=== PATIENT | female | born 1975 | race African-American/Black ===

== ENCOUNTER 2023-06-07 14:11 | Emergency (ER) | payer OTHER ==
[~2023-06-07] VITALS: Ht 165.1 cm; Wt 101.8 kg
[2023-06-07] MEDS ORDERED: DexAMETHasone SOD PHOS 10MG/1ML VIAL INJ IM ONE (17:00)
[2023-06-07] MEDS ORDERED: MORPHINE SULFATE INJ 2 MG/ml SYRG IM ONE (17:00)
[2023-06-07] MEDS ORDERED: CYCL-611 PO (17:03)
[2023-06-07] MEDS ORDERED: HYDR-4902 PO (17:03)
[2023-06-07 17:05] VITALS: TEMP 97.6; O2SAT 98
[2023-06-07 17:13] VITALS: BP 134/75; PULSE 64; RESP 18
== END 2023-06-07 17:49 | disposition home or self-care (01) ==
LOC: ER 14:11
DX: M54.40 Lumbago with sciatica, unspecified side (principal); M54.2 Cervicalgia; G89.29 Other chronic pain
CPT/HCPCS: 96372; 99284; J1100; J2270

== ENCOUNTER 2024-05-06 09:05 | Emergency (ER) | payer SELFPAY, OTHER ==
[~2024-05-06] VITALS: Ht 165.1 cm; Wt 102.2 kg
[~2024-05-06 09:05] MED LIST: CYCL-611 PO; HYDR-4902 PO
[2024-05-06 09:37] VITALS: BP 127/89; PULSE 89; RESP 16; TEMP 97.8; O2SAT 99
[2024-05-06] MEDS ORDERED: SERT100T PO (09:47)
== END 2024-05-06 09:54 | disposition home or self-care (01) ==
LOC: ER 09:05
DX: F32.9 Major depressive disorder, single episode, unspecified (principal); Z76.0 Encounter for issue of repeat prescription; Z79.899 Other long term (current) drug therapy

== ENCOUNTER 2024-11-27 20:13 | Emergency (ER) | payer SELFPAY ==
[~2024-11-27] VITALS: Ht 165.1 cm; Wt 104.6 kg
[~2024-11-27 20:13] MED LIST changes: +SERT100T PO
[2024-11-27 20:54] VITALS: BP 104/67; PULSE 79; RESP 18; TEMP 98.5; O2SAT 99
[2024-11-27] MEDS ORDERED: AMOX875T4 PO (21:24)
[2024-11-27] MEDS ORDERED: PRED20TA2 PO (21:24)
[2024-11-27] MEDS ORDERED: ACET500T58 PO (21:24)
--- NOTE | 2024-11-27 21:26 | ED.PDOC ---
SOB-HPI HPI Comments 49-year-old female presents to ER with complaints of cough x2 days. Patient reports that she has been experiencing productive cough with green phlegm, congestion and sore throat x two days. Reports that she has been using [id number] Robitussin for her symptoms without relief. She rates her current sore throat pain a 7/10. Patient presents to ER ambulatory on arrival, with steady gait, in no distress. Denies fever, body aches, chills, shortness of breath, chest pain, hemoptysis, headache, known exposure to sick contacts or any further symptoms/complaints Chief Complaint: Flu like Time Seen by MD: 20:27 Primary Care Provider: Dr. Jean Barr Reviewed notes: Nurses Notes, Medications, Allergies Information Source: Patient Mode of Arrival: Ambulatory Past Medical History PAST MEDICAL HISTORY: Depression Past Medical History (Other): ADHD Surgical History: , Denies all surgeries PROCESSING SPECIALIST History: No Pertinent PROCESSING SPECIALIST History Family History Family History: Unknown Social History Smoker: Non-Smoker Alcohol: Denies ETOH Use Drugs: Denies Drug Use Lives In: Home Constitutional: denies: chills, diaphoresis, fatigue, fever, malaise, sweats, weakness, others EENTM: reports: others (As stated in HPI) Respiratory: reports: others (As stated in HPI) Cardiovascular: denies: chest pain, dizzy spells, diaphoresis, Dyspnea on exertion, edema, irregular heart beat, left arm pain, lightheadedness, palpitations, PND, syncope, others Gastrointestinal: denies: abdomen distended, abdominal pain, blood streaked bowels, constipated, diarrhea, dysphagia, difficulty swallowing, hematemesis, melena, nausea, poor appetite, poor fluid intake, rectal bleeding, rectal pain, vomiting, others Genitourinary: denies: abnormal vagina bleeding, burning, dyspareunia, dysuria, flank pain, frequency, hematuria, incontinence, pain, , vagina discharge, urgency, others Neurological: denies: dizziness, fainting, headache, left sided numbness, left sided weakness, numbness, paresthesia, pre-existing deficit, right sided numbness, right sided weakness, seizure, speech problems, tingling, tremors, weakness, others Musculoskeletal: denies: back pain, gout, joint pain, joint swelling, muscle pain, muscle stiffness, neck pain, others Integumetry: denies: bruises, change in color, change in hair/nails, dryness, laceration, lesions, lumps, rash, wounds, others Allergic/Immunocompromised: denies: Difficulty Healing, Frequent Infections, Hives, Itching, others Hematologic/Lymphatic: denies: anemia, blood clots, easy bleeding, easy bruising, swollen glands, others Endocrine: denies: excessive hunger, excessive sweating, excessive thirst, excessive urination, flushing, intolerance to cold, intolerance to heat, unex plained weight gain, unexplained weight loss, others Psychiatric: denies: anxiety, bipolar disorder, depression, hopeless, panic disorder, schizophrenia, sleepless, suicidal, others Physical Exam General Appearance: No Apparent Distress, Obese HEENT: Normal ENT Inspection, PERRL/EOMI, Pharynx Normal, TMs Normal Neck: Full Range of Motion, Non-Tender, Normal Respiratory: Chest Non-Tender, Lungs Clear, No Accessory Muscle Use, No Respiratory Distress, Normal Breath Sounds Cardiovascular: No Murmur, No Gallop, Regular Rate/Rhythm Breast Exam: Deferred Gastrointestinal: NOT DONE Genitalia: Deferred Pelvic: Deferred Rectal: Deferred Extremities: Normal capillary refill, Normal range of motion Neurologic: Alert, probate judge II-XII nml as Tested, No Motor Deficits, Normal Affect, Normal Mood, No Sensory Deficits Cerebellar Function: Normal Reflexes: Normal Skin: Dry, Normal Color, Warm Peripheral Pulses: 2+ Radial (R), 2+ Radial (L), 2+ Brachial (R), 2+ Brachial (L) Lymphatic: No Adenopathy Was a procedure done? Was a procedure done?: No Sedation Sedation?: No Differential Dx Differential Diagnosis: Pneumonia, Respiratory Distress, Pharyngitis, Other (COVID-19, INFLUENZA) X-Ray, Labs, Meds, VS Vital Signs Date Time Temp Pulse Resp B/P (MAP) Pulse Ox O2 Delivery O2 Flow Rate FiO2 11/27/24 20:54 98.5 79 18 104/67 (79) 99 98.5 11/27/24 20:54 98.5 79 18 104/67 (79) 99 98.5 11/27/24 20:54 Room Air Lab Test 11/27/24 20:54 Range/Units Influenza Type A Antigen Negative Negative Influenza Type B Antigen Negative Negative SARS-CoV-2 Antigen (Rapid) Negative NEGATIVE Swab results reviewed-negative Patient in no distress during ER visit/prior to discharge Advised to drink plenty of fluids Advised to follow up with PCP in 1-2 days Patient verbalized understanding and agreeable with current plan of care Advised to return to ER immediately if symptoms worsen Time of 1ST Reevaluation: 21:04 Reevaluation 1ST: N/A Patient Education/Counseling: Diagnosis, Treatment, Prognosis, Need For Follow Up Family Education/Counseling: No Family Present Departure 1 Departure Time of Disposition: 21:24 Impression: Primary Impression: Upper respiratory infection Qualified Codes: J06.9 - Acute upper respiratory infection, unspecified Disposition: HOME / SELF CARE / HOMELESS Condition: Stable e-Prescriptions Prednisone (Prednisone) 20 Mg Tab 20 MG PO BID for 5 Days, #10 TAB 0 Refills Prov: SULEIMAN VIEIRA 11/27/24 Amoxicillin & Pot Clavulanate (Amoxicillin/Potassium Cla) 875 Mg Tab 1 TAB PO BID for 7 Days, #14 TAB 0 Refills Prov: SULEIMAN VIEIRA 11/27/24 Acetaminophen (Acetaminophen) 500 Mg Tab 500 MG PO Q4HPRN, #30 TAB 0 Refills Prov: SULEIMAN VIEIRA 11/27/24 Discharged With: Self Critical Care Note Critical Care Time?: No Stability Stability form required: No Heart Score Heart Score: Heart Score Response (Comments) Value History N/A 0 EKG N/A 0 Age N/A 0 Risk Factors N/A 0 Troponin N/A 0 Total 0 SULEIMAN VIEIRA Nov 27, 2024 21:26
[2024-11-27 21:47] LABS: Rapid Influenza A Negative (Negative); Rapid Influenza B Negative (Negative)
[2024-11-27 21:48] LABS: COVID19 ANTIGEN SOFIA FIA NEGATIVE (NEGATIVE)
== END 2024-11-27 21:50 | disposition home or self-care (01) ==
LOC: ER 20:13
DX: J06.9 Acute upper respiratory infection, unspecified (principal); F32.A Depression, unspecified; Z20.822 Contact with and (suspected) exposure to COVID-19
CPT/HCPCS: 36415; 87426; 87804

== ENCOUNTER 2025-05-02 09:35 | Emergency (ER) | payer SELFPAY ==
[~2025-05-02] VITALS: Ht 165.1 cm; Wt 103.3 kg
[~2025-05-02 09:35] MED LIST changes: +ACET500T58 PO; +AMOX875T4 PO; +PRED20TA2 PO
--- NOTE | 2025-05-02 10:06 | ED.PDOC ---
History of Present Illness HPI Comments A 49 YEAR OLD FEMALE PRESENTS TO THE ED WITH COMPLAINT OF MEDICATION REFILL. PATIENT STATES SHE HAS A HISTORY OF ADHD AND DEPRESSION AND USUALLY TAKES ZOLOFT 100 MG Q.D. AND STRATTERA 40 MG Q.D., BUT RAN OUT OF THIS MEDICATION. PATIENT IS REQUESTING A MEDICATION REFILL FOR BOTH OF THESE MEDICATIONS. PATIENT DENIES SI, HI, FEVER, CHILLS, SHORTNESS OF BREATH, CHEST PAIN, ABDOMINAL PAIN, NAUSEA, VOMITING, HEADACHE, OR OTHER COMPLAINTS. NO OTHER SYMPTOMS OR MODIFYING FACTORS AT THIS TIME. PATIENT IS ALERT, ORIENTED X 4, AND HAS STEADY GAIT. Chief Complaint: Mental Health Time Seen by MD: 09:43 Primary Care Provider: Dr. Jean Barr Reviewed Notes: Nurses Notes, Medications, Allergies Allergies: Coded Allergies: NO KNOWN ALLERGIES (Unverified , 06/07/23) Home Meds Active Scripts Atomoxetine Hydrochloride (Strattera) 60 Mg Cap, 40 MG PO DAILY, #30 CAP Prov:ALEX CRANDALL 05/02/25 Sertraline Hcl (Zoloft) 100 Mg Tab, 1 TAB PO DAILY, #30 TAB Prov:ALEX CRANDALL 05/02/25 Prednisone (Prednisone) 20 Mg Tab, 20 MG PO BID for 5 Days, #10 TAB 0 Refills Prov:SULEIMAN VIEIRA 11/27/24 Amoxicillin & Pot Clavulanate (Amoxicillin/Potassium Cla) 875 Mg Tab, 1 TAB PO BID for 7 Days, #14 TAB 0 Refills Prov:SULEIMAN VIEIRA 11/27/24 Acetaminophen (Acetaminophen) 500 Mg Tab, 500 MG PO Q4HPRN, #30 TAB 0 Refills Prov:SULEIMAN VIEIRA 11/27/24 Cyclobenzaprine HCl (Cyclobenzaprine Hydrochlo) 10 Mg Tab, 1 TAB PO Q8HR, #15 TAB as needed for muscle spasm Prov:HILL CASTRO NP 06/07/23 Hydrocodone-Acetaminophen (Hydrocodone Bitartrate/AC 5-325 mg) 1 Tab Tab, 1 TAB PO Q6HR, #10 TAB as needed for pain do not talke with flexeril Prov:HILL CASTRO SHOT EXAMINER 06/07/23 Information Source: Patient Mode of Arrival: Ambulatory Severity: None Timing: Days Duration: Since onset, Days Prehospital treatment: None Medication Refill: Ran out of Medication, For: Other (MEDICATION REFILL FOR PSYCH MEDICATIONS) Past Medical History PAST MEDICAL HISTORY: Depression Past Medical History (Other): ADHD Surgical History: , Denies all surgeries QUALITY TECH History: No Pertinent QUALITY TECH History Family History Family History: Reviewed,noncontributory to illness Social History Smoker: Non-Smoker Alcohol: Denies ETOH Use Drugs: Denies Drug Use Lives In: Home Constitutional: denies: chills, diaphoresis, fatigue, fever, malaise, sweats, weakness, others EENTM: denies: blurred vision, double vision, ear bleeding, ear discharge, ear drainage, ear pain, ear ringing, eye pain, eye redness, hearing loss, mouth pain, mouth swelling, nasal discharge, nose bleeding, nose congestion, nose pain, photophobia, tearing, throat pain, throat swelling, voice changes, others Respiratory: denies: cough, hemoptysis, orthopnea, SOB at rest, shortness of breath, SOB with excertion, stridor, wheezing, others Cardiovascular: denies: chest pain, dizzy spells, diaphoresis, Dyspnea on exertion, edema, irregular heart beat, left arm pain, lightheadedness, palpitations, PND, syncope, others Gastrointestinal: denies: abdomen distended, abdominal pain, blood streaked bowels, constipated, diarrhea, dysphagia, difficulty swallowing, hematemesis, melena, nausea, poor appetite, poor fluid intake, rectal bleeding, rectal pain, vomiting, others Genitourinary: denies: abnormal vagina bleeding, burning, dyspareunia, dysuria, flank pain, frequency, hematuria, incontinence, pain, , vagina discharge, urgency, others Neurological: denies: dizziness, fainting, headache, left sided numbness, left sided weakness, numbness, paresthesia, pre-existing deficit, right sided numbness, right sided weakness, seizure, speech problems, tingling, tremors, weakness, others Musculoskeletal: denies: back pain, gout, joint pain, joint swelling, muscle pain, muscle stiffness, neck pain, others Integumetry: denies: bruises, change in color, change in hair/nails, dryness, laceration, lesions, lumps, rash, wounds, others Allergic/Immunocompromised: denies: Difficulty Healing, Frequent Infections, Hives, Itching, others Hematologic/Lymphatic: denies: anemia, blood clots, easy bleeding, easy bruising, swollen glands, others Endocrine: denies: excessive hunger, excessive sweating, excessive thirst, excessive urination, flushing, intolerance to cold, intolerance to heat, unexplained weight gain, unexplained weight loss, others Psychiatric: denies: anxiety, bipolar disorder, depression, hopeless, panic disorder, schizophrenia, sleepless, suicidal, others All Other Systems: Reviewed and Negative Physical Exam General Appearance: No Apparent Distress, Normal HEENT: Normal ENT Inspection, PERRL/EOMI, Pharynx Normal, TMs Normal Neck: Full Range of Motion, Non-Tender, Normal, Normal Inspection Respiratory: Chest Non-Tender, Lungs Clear, No Accessory Muscle Use, No Respiratory Distress, Normal Breath Sounds Cardiovascular: No Edema, No JVD, No Murmur, No Gallop, Normal Peripheral P ulses, Regular Rate/Rhythm Breast Exam: Deferred Gastrointestinal: No Organomegaly, Non Tender, No Pulsatile Mass, Normal Bowel Sounds, Soft Genitalia: Deferred Pelvic: Deferred Rectal: Deferred Extremities: No calf tenderness, Normal capillary refill, Normal inspection, Normal range of motion, Non-tender, No pedal edema Musculoskeletal : Apperance: Normal Neurologic: Alert, prospecting observer II-XII nml as Tested, No Motor Deficits, Normal Affect, Normal Mood, No Sensory Deficits Cerebellar Function: Normal Reflexes: Normal Skin: Dry, Normal Color, Warm Peripheral Pulses: 2+ carotid (R), 2+ carotid (L) Lymphatic: No Adenopathy Was a procedure done? Was a procedure done?: No Differential Dx Considerations may include: ENCOUNTER FOR MEDICATION REFILL, HISTORY OF ADHD AND DEPRESSION X-Ray, Labs, Meds, VS Vital Signs Date Time Temp Pulse Resp B/P (MAP) Pulse Ox O2 Delivery O2 Flow Rate FiO2 05/02/25 10:10 81 18 97 Room Air 05/02/25 10:10 98.1 81 18 130/67 (88) 97 98.1 05/02/25 09:37 98.1 81 18 130/67 97 98.1 X-Ray, Labs, Meds, VS Comment EXTERNAL MEDICAL RECORDS REVIEWED: [NONE] INDEPENDENT HISTORIANS: [NONE] SOCIAL DETERMINANTS OF HEALTH: [NONE] LABS ORDERED: NONE REVIEWED AND INTERPRETED RESULTS: NONE IMAGING ORDERED: NONE TREATMENTS ORDERED: NONE PROCEDURES PERFORMED: NONE CRITICAL CARE TIME: NONE I HAVE DISCUSSED THE PATIENT WITH THE ATTENDING PHYSICIAN DR. RICCI AND HE AGREES WITH THE PATIENT'S PLAN OF CARE AND DISPOSITION. BASED ON HISTORY OF PRESENT ILLNESS, AND PHYSICAL EXAM, PATIENT WILL BE DISCHARGED HOME. DISCUSSED PLAN FOR DISCHARGE HOME WITH RX [ZOLOFT 100MG AND STRATTERA 40MG]. MEDICATION WARNINGS GIVEN. SHARED DECISION MAKING: PATIENT INSTRUCTED TO FOLLOW UP WITH PRIMARY CARE PROVIDER IN 1-2 DAYS FOR RE-EVALUATION OF SYMPTOMS. PATIENT VERBALIZES UNDERSTANDING TO RETURN TO ED FOR NEW OR WORSENING SYMPTOMS OR IF FOLLOW UP WITH PCP CANNOT BE OBTAINED. PATIENT FEELS COMFORTABLE GOING HOME AT THIS TIME. ALL QUESTIONS ADDRESSED AT TIME OF DISCHARGE. Time of 1ST Reevaluation: 10:15 Reevaluation 1ST: Improved Patient Education/Counseling: Diagnosis, Treatment, Need For Follow Up Family Education/Counseling: Diagnosis, Treatment, Need For Follow Up Medical Screening: No EMC Exist At This Time SEPSIS Sepsis Screen Date sepsis recognized/suspect: May 02, 2025 Time Sepsis recognized/suspect: 936 Recent Procedure: No On Antibiotic Therapy: No Respiratory Rate >20: No Heart Rate >90: No Temp<36 C (96.8 F) or >38.3 C: No SBP <90 or MAP <65 mmHG: No New Acute Mental Status Change: No Is the patient on CPAP, BIPAP,: No Vital Signs Date Time Temp Pulse Resp B/P (MAP) Pulse Ox O2 Delivery O2 Flow Rate FiO2 05/02/25 10:10 81 18 97 Room Air 05/02/25 10:10 98.1 81 18 130/67 (88) 97 98.1 05/02/25 09:37 98.1 81 18 130/67 97 98.1 Departure 1 Departure Time of Disposition: 10:15 Impression: Primary Impression: Encounter for medication refill Additional Impression: History of ADHD Disposition: HOME / SELF CARE / HOMELESS Condition: Stable Additional Instructions: FOLLOW-UP WITH PCP IN 1 TO 2 DAYS. TAKE MEDICATIONS PRESCRIBED. RETURN TO ED FOR ANY NEW OR WORSENING SYMPTOMS. e-Prescriptions Atomoxetine Hydrochloride (Strattera) 60 Mg Cap 40 MG PO DAILY, #30 CAP Prov: ALEX CRANDALL 05/02/25 Sertraline Hcl (Zoloft) 100 Mg Tab 1 TAB PO DAILY, #30 TAB Prov: ALEX CRANDALL 05/02/25 Discharged With: Self Critical Care Note Critical Care Time?: No Stability Stability form required: No I personally scribed for ALEX CRANDALL ([email or web address]) on 05/02/25 at 10:06. Electr onically submitted by Gato Sanders ([email or web address]). I personally scribed for ALEX CRANDALL ([email or web address]) on 05/02/25 at 10:09. Electro nically submitted by Gato Sanders ([email or web address]). ALEX CRANDALL May 02, 2025 10:06
[2025-05-02 10:10] VITALS: BP 130/67; PULSE 81; RESP 18; TEMP 98.1; O2SAT 97
[2025-05-02] MEDS ORDERED: SERT100T PO (10:14)
[2025-05-02] MEDS ORDERED: ATOM60CA PO (10:14)
== END 2025-05-02 10:17 | disposition home or self-care (01) ==
LOC: ER 09:35
DX: F32.A Depression, unspecified (principal); Z86.59 Personal history of other mental and behavioral disorders; Z76.0 Encounter for issue of repeat prescription; Z79.52 Long term (current) use of systemic steroids; Z79.899 Other long term (current) drug therapy